=== PATIENT | male | born 1975 | race Caucasian/White ===

== ENCOUNTER 2024-08-15 01:00 | Emergency (ER) | payer OTHER, SELFPAY ==
[2024-08-15 01:07] VITALS: BP 130/86
[2024-08-15 01:26] VITALS: BMI 25.5
[2024-08-15 01:50] LABS: % Basophils 0.6 % (0-2); % Eosinophils 4.3 % (0-6); % Immature Granulocytes 0.1 % (0-0.5); % Lymphocytes 40.2 % (20.5-51.1); % Monocytes 8.4 % (1.7-9.3); % Neutrophils 46.4 % (42.2-75.2); Absolute Eosinophils 0.3 10^3/uL (0-0.7); Absolute Lymphocytes 2.7 10^3/uL (1.2-3.4); Absolute Monocytes 0.6 10^3/uL (0.1-0.6); Absolute Neutrophils 3.1 10^3/uL (1.4-6.5); Hematocrit 41.2 % (39.0-52.0); Hemoglobin 14.7 g/dL (13.0-18.0); Mean Corp Hgb Conc. 35.7 g/dL (33.0-37.0); Mean Corpuscular Hgb 31.5 pg (27.0-31.0); Mean Corpuscular Volume 88.2 fL (80.0-94.0); Mean Platelet Volume 8.7 fL (7.4-10.4); Nucleated Red Blood Cells % 0 % (-); Platelet Count 248 10^3/uL (130-400); Red Blood Cell Count 4.67 10^6/uL (4.70-6.10); Red Cell Dist. Width 12.8 % (11.5-14.5); White Blood Cell Count 6.7 10^3/uL (4.8-10.8)
[2024-08-15 02:00] LABS: ALT (SGPT) 42 U/L (0-50); AST (SGOT) 67 U/L (17-59); Albumin 4.6 g/dl (3.5-5.0); Alkaline Phosphatase 98 U/L (38-126); Blood Urea Nitrogen 20 mg/dl (9-20); Calcium 9.2 mg/dl (8.4-10.2); Carbon Dioxide 26 mmol/L (22-30); Estimated Creatinine Clearance 107 ml/min; Glucose 115 mg/dl (70-99); Potassium 3.9 mmol/L (3.5-5.1); Sodium 138 mmol/L (135-145); Total Bilirubin 0.8 mg/dl (0.2-1.3); Total Protein 7.2 g/dl (6.3-8.2); eGFR > 60.00
[2024-08-15 02:11] LABS: Troponin I < 0.012 ng/ml
[2024-08-15 02:17] LABS: Chloride 104 mmol/L (98-107); Lipase 92 U/L (23-300)
[2024-08-15 03:09] VITALS: BP 100/67; BP 94/67
[2024-08-15 04:00] VITALS: BP 104/70
[2024-08-15 05:00] VITALS: BP 114/60
[2024-08-15 05:03] LABS: Troponin I < 0.012 ng/ml
--- NOTE | 2024-08-15 06:13 | ED.GENMED ---
History of Present Illness
General
Chief Complaint: Chest Pain
Source: patient and spouse
Time Seen by Provider: 08/15/24 01:33
History of Present Illness
History of Present Illness:
This is a 49-year-old male who awoke with sleep with chest pain. Patient states started about an hour prior to arrival and has now since essentially resolved. He states the pain was central and radiating out. States had similar episode in the
past but did not seek medical evaluation. Patient states that he had no belching. States the pain was somewhat severe but now since resolved. Feels well now. No shortness of breath. No back pain. No abdominal pain. Does vape.
Past History
Past History
ED Past Medical History: Other (Irritable bowel syndrome)
Social History
Tobacco: Vaping
Phy Exam
Physical Exam
Physical Exam:
CONSTITUTIONAL Patient alert and oriented to person, place and time. Well-appearing. Vital signs reviewed.
HEAD atraumatic, normocephalic.
EYES eyelids normal to inspection, Extraocular muscles intact, Conjunctiva normal, Sclera normal.
NECK normal range of motion, Trachea midline, no jugular venous distention.
RESPIRATORY CHEST No respiratory distress noted, Chest expansion equal, Bilateral breath sounds clear.
CARDIOVASCULAR regular rate and rhythm, Heart sounds normal.
ABDOMEN abdomen nontender, Bowel sounds normal. No distention.
BACK normal inspection, no obvious deformities
UPPER EXTREMITY range of motion normal, Motor strength normal, no cyanosis, no edema.
LOWER EXTREMITY range of motion normal, Motor strength normal, no cyanosis, no edema.
NEURO Speech normal, No focal motor deficits, [place] coma scale 15, Memory normal, Cranial Nerves intact to screening exam.
SKIN skin warm, dry, and normal in color.
Scores
Heart Score for Chest Pain Patients
STEMI patient?: No
History: Slightly or Non-Suspicious
ECG: Normal
Age: >45 - <65 years
Risk Factors: 1 or 2 Risk Factors
Troponin: </= Normal Limit
Heart Score for Chest Pain Patients: 2
Heart Score Risk: 2.5% MACE over next 6 weeks
Course
Orders/Labs/Results
Orders:
Orders
08/15/24 01:02
Electrocardiogram (*1) Urgent
Reason for Study: Chest Pain
EKG- Treatment ONCE
08/15/24 01:39
CMP [Comprehensive Metabolic Panel] Urgent
Complete Blood Count/With Diff Urgent
Lipase Urgent
Troponin I Urgent
08/15/24 01:51
CR Chest - 2 Views Urgent
Comment:
Reason For Exam: cp
08/15/24 04:20
Troponin I Urgent
Abnormal Lab Results
08/15/24
01:39
RBC 4.67 L 10^6/uL
(4.70-6.10)
MCH 31.5 H pg
(27.0-31.0)
Glucose 115 H mg/dl
(70-99)
AST 67 H U/L
(17-59)
08/15/24 01:39
08/15/24 01:39
Vital Signs
Initial and Last Documented VS:
Initial Vital Signs
Temp Pulse BP Pulse Ox
97.5 F 60 130/86 100
08/15/24 01:07 08/15/24 01:07 08/15/24 01:07 08/15/24 01:07
Last Documented Vital Signs
Temp Pulse Resp BP Pulse Ox
97.5 F 69 19 114/60 99
08/15/24 01:07 08/15/24 05:30 08/15/24 05:30 08/15/24 05:00 08/15/24 05:30
MDM/Problems Addressed
Differential Diagnosis Includes:
ACS, PE, pneumothorax, pneumonia, GERD, musculoskeletal etiology, shingles
MDM/Problems Addressed:
Chest pain
*Radiology
Radiology exam reviewed: all reviewed NAD by ED Provider
*Pulse Oximetry
Patient hypoxic: no
*EKG
Interpreted by ED Provider?: Yes
Interpretation: normal
Rate: normal
Rhythm: sinus
[place]: normal axis
Interval: normal interval
Ischemia: no ischemia
*Chief Deputy Coroner Interpretation
Rate: normal
Interpretation: normal
Rhythm: sinus
*Critical Care Note
Total Time (30-74mins, 75-104mins- exclusive of procedures): Not Applicable
Data Reviewed
Source: patient and spouse (Spouse states that the pain was somewhat severe but he looks much better now)
Prescriptions/Medications Considered But Not Given:
Consider nitroglycerin but low suspicion for ACS and pain as result
Further Testing Considered But Not Given:
Consider D-dimer but no PE risks
Patient Management
Escalation/DeEscalation of care consider admission/obs:
Chest pain is resolved. Patient appears well. Will refer him to outpatient cardiology follow-up hotline as troponin x 2 unremarkable. Chest x-ray negative
ED Attending Note
-
Portions of this chart may have been created with voice recognition software.� Occasional wrong word or��sound alike� substitutions may have occurred due to the inherent limitations of voice recognition software.
Discharge Plan
Departure
Patient Disposition: Home (Routine Discharge)
Date of Disposition: 08/15/24
Time of Disposition: 06:16
Patient with high blood pressure during this ER visit?: No
Discharge Problem:
Chest pain
Instructions: Chest Pain CBC Follow Up
Referrals:
Flory David CRNP [Family Provider] -
Activity Restrictions/Additional Instructions:
Please avoid strenuous or exertional activity until cleared by cardiology. Please see cardiology in the next 48 hours for reevaluation. Return immediately for worsening pain, shortness breath, palpitations, sweating, nausea, weakness of any kind,
numbness, tingling or any other concerns.
Cardiology has been notified and a follow up appointment has been requested. Someone will call you on the next business day to schedule a follow up appointment.
Interventions
Interventions:
*Risk Screen - Suicide Last Done: 08/15/24 01:10
*General Assessment Last Done: 08/15/24 01:38
*Neglect/Abuse Screening Last Done: 08/15/24 01:10
*ED COVID-19 Vaccine History Last Done: 08/15/24 01:38
ED- Cardiac Assessment Last Done: 08/15/24 01:29
Discharge Date and Time
Print Language: ANGUILLAN
== END 2024-08-15 06:58 | disposition home or self-care (01) ==
LOC: EMR 01:00
PROVIDERS: EMERGENCY PHYSICIAN Emergency Medicine; FAMILY PHYSICIAN Nurse Practitioner Adult Health
DX: R07.89 Other chest pain (principal); K58.9 Irritable bowel syndrome, unspecified; F17.290 Nicotine dependence, other tobacco product, uncomplicated
CPT/HCPCS: 99283; 71046; 80053; 83690; 84484; 85025; 93005

== ENCOUNTER → 2024-09-07 10:20 | Outpatient (REF) | payer OTHER, SELFPAY | LOC: RCS 10:20 | PROVIDERS: ATTENDING PHYSICIAN Internal Medicine Cardiovascular Disease; FAMILY PHYSICIAN Nurse Practitioner Adult Health | DX: R07.89 Other chest pain (principal); F41.9 Anxiety disorder, unspecified; R00.1 Bradycardia, unspecified | CPT/HCPCS: 93017 ==

== ENCOUNTER → 2024-09-20 06:45 | Outpatient (REF) | payer OTHER, SELFPAY | LOC: RAD 06:45 | PROVIDERS: ATTENDING PHYSICIAN Nurse Practitioner Adult Health | DX: R10.84 Generalized abdominal pain (principal) | CPT/HCPCS: 76700 ==

== ENCOUNTER 2024-10-31 14:57 | Day surgery (SDC) | payer OTHER, SELFPAY ==
[2024-10-31] VITALS (13 sets, daily range): BP systolic 114–146; BP diastolic 71–87; BMI 25.3
--- NOTE | 2024-10-31 09:00 | ED.GENMED ---
History of Present Illness
General
Chief Complaint: Abdominal Symptoms
Source: patient and spouse
Exam Limitations: none
Time Seen by Provider: 10/31/24 08:36
Nursing documentation reviewed up to this point in time: agreed with
History of Present Illness
History of Present Illness:
The patient is a 49-year-old male who experienced an acute exacerbation of pain described as a right upper quadrant abdopminal pain accompanied by sharp pains radiating to the back and the chest. This episode awakened him at approximately 3:30 AM,
echoing a previous similar occurrence a month ago initially thought to be a heart attack but later suspected to be gallbladder-related. The pain pattern appears intermittent, with triggers related to diet�symptoms flare upon consuming 'bad' foods.
Over the past week and a half, the patient reports being cautious with the diet, experiencing fewer symptoms. No vomiting, nausea, diarrhea, changes in bowel movements, or fever were reported. He is awaiting gallbladder surgery, although the precise
scheduling needs clarification. The severity of the current symptoms will determine if surgical intervention needs to be expedited.
Past History
Past History
ED Past Medical History: Other (Irritable bowel syndrome)
Social History
Tobacco: Vaping
Review of Systems
Review of Systems
Allergies reviewed?: Yes
All Other Systems: ROS reviewed and negative except as documented in HPI and ROS
Phy Exam
Physical Exam
Physical Exam:
GENERAL: Alert , in no apparent distress
EYE: pupils equal and reactive
NECK: Supple, no significant adenopathy.
ENT: o/p clr, mmm.
CARDIAC: Regular rate and rhythm .
LUNGS: Clear breath sounds bilaterally, no acute respiratory distress, no wheezes/rales/rhonchi
ABDOMEN: Soft, without focal tenderness, no r/g, no cvat
NEUROLOGICAL: Alert and oriented, no focal neuro deficits
SKIN: Warm and dry, skin intact.
MUSCULOSKELETAL: No edema, well perfused.
PSYCH: Normal and appropriate interaction.
Course
Orders/Labs/Results
Orders:
Orders
10/31/24 Breakfast
NPO
Allow oral meds: Yes
Allow clear liquids: No
10/31/24 08:59
US Abdomen Complete/Upper Urgent
Comment:
Reason For Exam: RUQ pain
10/31/24 09:02
EKG [Electrocardiogram (*1)] Urgent
Reason for Study: Chest Pain
EKG- Treatment ONCE
10/31/24 09:51
Complete Blood Count/With Diff Urgent
Comprehensive Metabolic Panel Urgent
Lipase Urgent
Urinalysis Reflex To Culture Urgent
Date Specimen was Collected: 10/31/24
Time Specimen was Collected: 09:01
10/31/24 11:56
Admit/Transfer Patient As Directed
Co-Sign Provider:
Level of Care: Post Proc/Surg Recovery
Assign to:: Medical/Surgical
Physician / Group: Edilberto/Gen surg
Diagnosis: Biliary colic
Reason for Overnight Stay: Standard of Care
Code Status As Directed
Resuscitation Status: Full Code
PRN Pain Medication Management As Directed
May give lesser potent ordered pain med per pt: Yes
preference::
Protocol:: Medication orders for pain may be administered in a
manner that supports deferring to patient preference
when the pt is:
- Requesting an ordered lesser potent pain medication.
Least to most potent pain medications are defined
as: acetaminophen < NSAID < tramadol < opioids
(morphine, oxycodone, hydromorphone).
- Requesting a lesser dose of the same medication IF
ORDERED.
- Requesting a less intrusive route of administration
if both routes are prescribed by the provider (PO <
IV).
10/31/24 11:59
Piperacillin/Tazo 3.375 Gram [Zosyn] 3.375 gram in 50 ml IV NOW
10/31/24 12:01
Sequential Compression Device [Pneumatic Compression Sleeves] As Directed
Type: Knee high
DX Deep Vein Thrombosis Video Routine
Abnormal Lab Results
10/31/24
09:51
RBC 4.55 L 10^6/uL
(4.70-6.10)
MCH 32.1 H pg
(27.0-31.0)
10/31/24 09:51
10/31/24 09:51
Vital Signs
Initial and Last Documented VS:
Initial Vital Signs
BP
118/75
10/31/24 10:07
Last Documented Vital Signs
BP Pulse Ox
118/75 100
10/31/24 10:07 10/31/24 11:45
MDM/Problems Addressed
MDM/Problems Addressed:
- Proceed with diagnostic tests to assess the urgency of surgical intervention and rule out any complicating factors.
- Monitor for worsening symptoms or development of nausea, with symptomatic treatment offered if necessary.
Please found have significant gallstones as well as gallbladder wall thickening. Case discussed with surgery.
10/31/24 - 12:02
The surgical team has decided to proceed with the removal of the gallbladder. The patient reports feeling well at this time. The patient is to remain NPO, having last consumed coffee approximately one hour ago. Will update with any further
information as it becomes available.
*Critical Care Note
Total Time (30-74mins, 75-104mins- exclusive of procedures): Not Applicable
ED Attending Note
-
Portions of this chart may have been created with voice recognition software.� Occasional wrong word or��sound alike� substitutions may have occurred due to the inherent limitations of voice recognition software.
Discharge Plan
Departure
Patient Disposition: Admit
Date of Disposition: 10/31/24
Time of Disposition: 12:04
Admit to: Med/Surg
Admit to doctor: Edilberto
Presentation/result/management discussed w/ accepting MD/DO: Gen Surgery
Patient with high blood pressure during this ER visit?: No
Condition: Good
Covid-19: Not Applicable
Discharge Problem:
Cholecystitis
Referrals:
Flory David CRNP [Family Provider, General]
Interventions
Interventions:
*Risk Screen - Suicide Last Done: 10/31/24 08:32
*General Assessment Last Done: 10/31/24 09:04
*Neglect/Abuse Screening Last Done: 10/31/24 08:32
*ED- Fall Risk Assessment Last Done: 10/31/24 09:04
*ED COVID-19 Vaccine History Last Done: 10/31/24 09:04
CJ-Gqvyxy-Nopoeermve Assessment Last Done: 10/31/24 09:04
Discharge Date and Time
Print Language: UZBEK
[2024-10-31 10:06] LABS: Urine Albumin Negative (Neg - Trace); Urine Bilirubin Negative (Negative); Urine Character Clear (Clear); Urine Color Yellow; Urine Glucose Negative (Negative); Urine Ketone Negative (Negative); Urine Leukocyte Negative (Negative); Urine Nitrite Negative (Negative); Urine Occult Blood Negative (Negative); Urine Specific Gravity 1.005 (<1.030); Urine Urobilinogen Negative (Neg - 1+)
[2024-10-31 10:58] LABS: % Basophils 0.8 % (0-2); % Eosinophils 5.3 % (0-6); % Immature Granulocytes 0.2 % (0-0.5); % Lymphocytes 33.8 % (20.5-51.1); % Monocytes 7.2 % (1.7-9.3); % Neutrophils 52.7 % (42.2-75.2); Absolute Basophils 0.1 10^3/uL (0-0.2); Absolute Eosinophils 0.3 10^3/uL (0-0.7); Absolute Lymphocytes 2.1 10^3/uL (1.2-3.4); Absolute Monocytes 0.5 10^3/uL (0.1-0.6); Absolute Neutrophils 3.3 10^3/uL (1.4-6.5); Hematocrit 40.5 % (39.0-52.0); Hemoglobin 14.6 g/dL (13.0-18.0); Mean Corpuscular Hgb 32.1 pg (27.0-31.0); Mean Platelet Volume 8.8 fL (7.4-10.4); Nucleated Red Blood Cells % 0 % (-); Platelet Count 217 10^3/uL (130-400); Red Blood Cell Count 4.55 10^6/uL (4.70-6.10); Red Cell Dist. Width 13.2 % (11.5-14.5); White Blood Cell Count 6.3 10^3/uL (4.8-10.8)
[2024-10-31 11:18] LABS: ALT (SGPT) 19 U/L (0-50); AST (SGOT) 23 U/L (17-59); Albumin 4.6 g/dl (3.5-5.0); Alkaline Phosphatase 67 U/L (38-126); Blood Urea Nitrogen 16 mg/dl (9-20); Calcium 9.4 mg/dl (8.4-10.2); Carbon Dioxide 27 mmol/L (22-30); Chloride 106 mmol/L (98-107); Estimated Creatinine Clearance 104 ml/min; Glucose 94 mg/dl (70-99); Lipase 74 U/L (23-300); Potassium 4.3 mmol/L (3.5-5.1); Sodium 139 mmol/L (135-145); Total Bilirubin 0.6 mg/dl (0.2-1.3); Total Protein 7.7 g/dl (6.3-8.2); eGFR > 60.00
--- NOTE | 2024-10-31 11:47 | HPS.HSE ---
Family Physician
-
Family Physician: Flory David
Chief Complaint
-
RUQ pain
History of Present Illness
Mr Cote is a 49 yo male with a h/o biliary colic who presents through the ED with severe RUQ and epigastric pain which began overnight awakening him from sleep. He had a prior episode of biliary colic in July and was diagnosed with
cholelithiasis at that time. He has since followed as an outpatient with Dr. Casanova and scheduled laparoscopic cholecystectomy for next month. He has been trying to manage symptoms with dietary adjustments but unfortunately, developed pain once
again early this am. He notes pain is much improved but tenderness to the RUQ still present on exam. He denies associated nausea or vomiting, fevers or chills or changes to bowel pattern.
Medical History
Past Medical History
Past Medical History: Reports Other (IBS, biliary colic/cholelithiasis)
Past Surgical History: Reports None
Social History
Tobacco: Vaping
Alcohol: Occasional
Family History
Family History: CAD (Father diet of HF at age 64) and Cancer (Mother of lung Ca)
Allergies / Home Medications
Allergies reflects when Allergies were last updated in [employer].
Home Medications with original date entered in [employer]
Allergy/Medication List:
Patient Allergies
Allergy/AdvReac Type Severity Reaction Status Date / Time
erythromycin base Allergy Unknown Verified 10/31/24 08:34
If medication reconciliation has not been performed, why?: Medication List N/A
Review of Systems
-
History Source: Patient
A 12 point ROS was completed and negative except as noted: Yes
Physical Exam
Vital Signs
Vital Signs
BP Pulse Ox
118/75 100
10/31/24 10:07 10/31/24 10:30
Physical Exam
General: Well Developed and Well Nourished
HEENT: Moist mucous membranes
Respiratory: Non Labored Respirations
GI: Soft, Non Distended and Tender (mild to deep palpation of the RUQ)
Skin: Warm and Dry
Neuro: Awake, Alert and AO x 3
Psych: Calm
Laboratory Results
-
10/31/24 09:51
10/31/24 09:51
Laboratory Results
Total Bilirubin 0.6 mg/dl (0.2-1.3) 10/31/24 09:51
AST 23 U/L (17-59) 10/31/24 09:51
ALT 19 U/L (0-50) 10/31/24:51
Alkaline Phosphatase 67 U/L (38-126) 10/31/24 09:51
Lipase 74 U/L (23-300) 10/31/24 09:51
Data Reviewed
-
Ultrasound: Image Personally Visualized and interpreted, Report Reviewed by me, Discussed with Physician and Discussed with Patient
Lab Data: Labs Reviewed by me, Discussed with Physician and Discussed with Patient
Old Records: Reviewed
Impression/Plan
-
IMPRESSION: 49 yo male presenting with recurrent biliary colic. US imaging reviewed with new gallbladder wall thickening with multiple stones, ?chronic vs early acute calculous cholecystitis. Pain improved with analgesics in the ED but still with
tenderness on exam. AFVSS. Labs WNL.
PLAN:
NPO for OR tentatively later today for lap griselda
IV Zosyn preop
Analgesics prn
IVF while NPO
SCDs for VTE ppx
[2024-10-31] MEDS: ZOSYN 50 IV (12:09)
--- NOTE | 2024-10-31 16:39 | W.IMMPOSTOP ---
Surgical Immed Post Op Note
-
Primary Surgeon: Roge Casanova MD
Assisting Surgeon: None
Pre-op Diagnosis: Acute cholecystitis
Post-op Diagnosis: Same
Procedure Performed: Laparoscopic cholecystectomy with cholangiogram
Anesthesia Type: General
Specimen / Cultures: Gallbladder and contents
Estimated Blood Loss: 7 cc
Complications: None
Operative Findings: Mildly distended gallbladder with thickened gallbladder wall consistent with acute on chronic cholecystitis. Critical view of safety obtained prior to cholangiogram which demonstrated no distal filling defects and otherwise
normal biliary anatomy. Duct ligated with a clip followed by 0 PDS Endoloop.
POST OP PLAN:
Will discharge home today
[2024-10-31] MEDS: DILAUDID 0.5 MG IV ×2 (16:42→16:54)
--- NOTE | 2024-10-31 16:52 | OR.RPT ---
Operative Report
Operative Report
Patient Name: Malcom Ma
: 1975
Date of Operation: 10/31/2024
Preoperative Diagnosis: Acute cholecystitis
Postoperative Diagnosis: Same
Procedure(s):
Laparoscopic Cholecystectomy with Cholangiogram
Surgeon(s):
Dr. Casanova
Patient Account Liaison(s):
VALENTE Triana
Anesthesia: General
Estimated Blood Loss: 7 cc
Urine Output: None
Drains/Lines/Implants: None
Specimens:
1. Gallbladder and contents
HPI/Surgical Indications:
This is a 49-year-old male who presents with 1 day of postprandial right upper quadrant abdominal pain, in the setting of known biliary disease. The patient was actually scheduled for surgery later this month with myself before this most recent
attack. Exam, labs and imaging are consistent with acute cholecystitis. Risks/Benefits/Alternatives were discussed at length, and the patient agreed to proceed with surgery.
Operative Findings: Mildly distended gallbladder with thickened gallbladder wall consistent with acute on chronic cholecystitis. Critical view of safety obtained prior to cholangiogram which demonstrated no distal filling defects and otherwise
normal biliary anatomy. Duct ligated with a clip followed by 0 PDS Endoloop.
Procedure Description:
The patient was brought to the Operating Room and placed in the supine position with one arm tucked. Following uneventful induction of general endotracheal anesthesia, an orogastric tube was placed. The abdomen was prepped and draped in the usual
sterile fashion. A timeout was performed confirming the procedure, consent, and that IV antibiotics were infused and sequential compression devices were confirmed to be on. The abdomen was entered using an infraumbilical open Kel[place] technique with
a 12 mm balloon-tipped trocar. Pneumoperitoneum to 15 mmHg pressure was obtained without difficulty and we confirmed that no injury had occurred during our entry. The patient was positioned in reverse Trendelenberg and rotated with the right side
up slightly. Three (3) 5mm trocars were then placed along the right subcostal margin. The gallbladder was mildly distended with a thickened gallbladder wall consistent with acute on chronic cholecystitis. A locking grasping forceps was placed on
the fundus of the gallbladder where it was then retracted cephalad and to the right. Using appropriate grasping instruments, the peritoneum overlying the triangle of [place] was incised and extended superiorly on both the anterior and posterior
gallbladder persaud. The infundibulum was dissected off the cystic plate. The cystic triangle was dissected until a critical view of safety was achieved. The cystic artery was medialized, dissected and controlled with 2 proximal clips and 1 distal.
The cystic duct/gallbladder junction in turn was identified, dissected circumferentially and a clip was placed. A ductotomy was made and a cholangiocatheter on an Barber clamp was inserted into the cystic duct. A C-arm was draped and brought into the
field. An intra-operative cholangiogram was performed and was noted to have:
No filling defects in the biliary tree
No significant biliary dilation
Brisk flow of contrast into the duodenum
Normal biliary anatomy
The catheter was then removed and the cystic duct was controlled with a clip followed by a 0 PDS Endoloop. After ensuring both the artery and duct were divided, the gallbladder was freed from the liver using electrocautery. There was minimal
spillage of bile and no spillage of stones. The gallbladder bed was inspected and excellent hemostasis was obtained. The gallbladder was extracted through the 12 mm trocar site using an endocatch bag. The abdomen was again irrigated and excellent
hemostasis was assured. All remaining trocars were then removed and the pneumoperitoneum was evacuated. The 12 mm trocar site was closed using 0 PDS suture. All trocar sites were closed at the skin level using 4-0 Monocryl followed by Dermabond.
Overall, the patient tolerated the procedure well and was taken to the Recovery Room postoperatively in stable condition.
I was the attending physician and performed the procedure with assistance of the PA above. The assistance of VALENTE Triana was required due to the complexity of the procedure. During the procedure Gladys assisted with port placement, instrument
and closure of the wound. I was present for all portions of the case, excluding skin closure.
Roge Casanova MD
--- NOTE | 2024-11-01 16:29 | W.SUR.PREOP ---
Pre-Operative Surgical Note
-
I have examined this patient prior to the performance of the scheduled procedure.
The patient's condition is unchanged from the time of the current History and
Physical and the patient is able to undergo the scheduled procedure.
== END 2024-10-31 18:16 | disposition home or self-care (01) ==
LOC: SDS 14:57
PROVIDERS: Physician Assistant; ATTENDING PHYSICIAN Surgery; EMERGENCY PHYSICIAN Emergency Medicine; FAMILY PHYSICIAN Nurse Practitioner Adult Health
DX: K80.00 Calculus of gallbladder with acute cholecystitis without obstruction (principal); K80.62 Calculus of gallbladder and bile duct with acute cholecystitis without obstruction
CPT/HCPCS: 47563; 88304; 74300; 76000; 76700; 80053; 81003; 83690; 85025; 93005; 99285; A4300